=== PATIENT | male | born 1975 | race Caucasian/White ===

== ENCOUNTER → 2017-02-25 | Outpatient (CLI) | payer BC ==
[~2017-02-25] MED LIST: HCTZ PO; LISINOPRIL PO; MEDROL4 MG/DOSE- PO; TYLENOL EXTRA STREN PO; VICODIN ES 7.51 EACH PO
--- NOTE | ~2017-02-25 | US113 ---
[facility] A Service of [facility] RADIOLOGY TEXT RESULTS PATIENT: DILAN KNIGHT LOCATION: [facility] : 75 UNIT #: [id number] AGE: [address]: Savana Mims MD SEX: M ORDER DR: [id number] [facility] [address] [place], [place] [address] [id number] O MR#: [id number] Acc #: [id number] NAME: DILAN KNIGHT : 1975 SEX: M STUDY DATE/TIME: 02/25/2017 14:54 UNIT: [facility] ROOM: STUDY DESCRIPTION: US Scrotal Duplex Complete Attending Physician: Savana Mims M.D. Referring Physician: Savana Mims M.D. Ordering Physician: Savana Mims M.D. Primary Care Physician: Savana Mims M.D. MEDICAL IMAGING REPORT This report is preliminary unless electronic signature is present EXAM Scrotal ultrasound. INDICATIONS Testicular pain for 1 month. Remote vasectomy. Bilateral testicular pain. COMPARISON CT of the abdomen and pelvis, 11/16/2013. CT pelvis 01/17/2009. FINDINGS Right testicle measures 4.5 x 3 x 2 cm. The left testicle measures 3.5 x 3.3 x 1.9 cm. Echogenicity and echotexture of the testicles are within normal limits. No testicular mass. There is normal color Doppler flow within the testicles. There is slight enlargement and mild heterogeneity of the left epididymis. Epididymis is not particularly hypervascular. IMPRESSION 1. Enlarged and slightly heterogeneous left epididymis. Please correlate for any evidence of mild epididymitis. 2. Normal appearance of the testicles. Dictated by... Bruce Aguilar M.D. THIS IS AN ELECTRONICALLY VERIFIED REPORT Bruce Aguilar M.D. at 02/27/2017 3:56 PM FARIBA/chan [facility] A Service of [facility] RADIOLOGY TEXT RESULTS PATIENT: DILAN KNIGHT LOCATION: [facility] : 75 UNIT #: [id number] AGE: [address]: Savana Mims MD SEX: M ORDER DR: TD: 02/27/2017 15:23 JOB #: [id number] MEDICAL IMAGING REPORT Page 1 of 1 COPY
== END | disposition home or self-care (01) ==
LOC: CGUS 14:10
DX: N50.89 Other specified disorders of the male genital organs (principal)
CPT/HCPCS: 93975